=== PATIENT | male | born 1990 | race Two or more races ===

== ENCOUNTER 2018-06-07 16:46 | Emergency (ER) | payer SELFPAY ==
[~2018-06-07] VITALS: Ht 175.3 cm; Wt 95.3 kg
[2018-06-07] MEDS ORDERED: NKM (16:59)
[2018-06-07 17:02] VITALS: BP 154/75
[2018-06-07] MEDS ORDERED: Methocarbamol 500mg tab ORAL ONE (17:15)
[2018-06-07] MEDS ORDERED: Ketorolac 30mg Inj IM ONE (17:15)
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
[2018-06-07] MEDS ORDERED: TYLENOL EXTRA500 MG ORAL (17:31)
[2018-06-07] MEDS ORDERED: ROBAXIN500 MG PO (17:31)
[2018-06-07] MEDS ORDERED: LIDOCAINE700 M1 TP (17:31)
[2018-06-07 18:12] VITALS: BP 148/70
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
== END 2018-06-07 18:12 | disposition home or self-care (01) ==
LOC: EMR 17:40
DX: S13.9XXA Sprain of joints and ligaments of unspecified parts of neck, initial encounter (principal); V43.52XA Car driver injured in collision with other type car in traffic accident, initial encounter; Y92.488 Other paved roadways as the place of occurrence of the external cause; M54.9 Dorsalgia, unspecified
CPT/HCPCS: 72040; 96372; 99283; J1885